=== PATIENT | female | born 1955 | race Caucasian/White ===

== ENCOUNTER 2017-02-06 11:53 | Inpatient (IN) | payer MEDICARE, OTHER ==
[~2017-02-06] VITALS: Ht 172.7 cm; Wt 98.7 kg
[2017-02-07] MEDS ORDERED: ATOR40TA16 PO (10:01)
[2017-02-07] MEDS ORDERED: EXCETAB PO (10:01)
[2017-02-07] MEDS ORDERED: OMEP20TA PO (10:01)
[2017-02-07] MEDS ORDERED: ASPI325T PO (10:01)
[2017-02-07] MEDS ORDERED: LISI20TA PO (10:01)
[2017-02-07] MEDS ORDERED: RIZA10TA2 PO (10:01)
[2017-02-14] VITALS (10 sets, daily range): BP systolic 94–120; BP diastolic 61–72; PULSE 65–77; RESP 18–20; TEMP 97.7–98.6; O2SAT 95–97
[2017-02-14] MEDS ORDERED: LACTATED RINGER'S 1000 ML IV PRN (07:00)
[2017-02-14] MEDS ORDERED: INSULIN HUMAN REGULAR 1,000 UNITS/10 ML VIAL SQ PRN (07:00)
[2017-02-14] MEDS ORDERED: SODIUM CHLORID 0.9% 500 ML IV PRN (07:00)
[2017-02-14] MEDS ORDERED: DEXT 5%-NACL 0.9% 1000 ML INJ 1,000 ML IV SCH (07:00)
[2017-02-14] MEDS ORDERED: METOPROLOL TARTRATE 25 MG TAB PO PRN (07:00)
[2017-02-14] MEDS ORDERED: METRONIDAZOLE 500 MG/100 ML ISONTONIC SOLN IV SCH (07:00)
[2017-02-14] MEDS ORDERED: CHLORHEXIDINE GLUCONATE 2 % 1 PACK (2 CLOTHS) TOPICAL PRN (07:00)
[2017-02-14] MEDS ORDERED: POVIDONE IODINE 5% (ANTISEPSIS KIT) 4 APPLICATIONS EACH NARE PRN (07:00)
[2017-02-14] MEDS ORDERED: ceFAZolin 2 GM PREMIX 50 ML IV SCH (07:00)
[2017-02-14] MEDS ORDERED: [UNRECOGNIZED DRUG - OTHER] OTHER (07:08)
[2017-02-14] MEDS ORDERED: ACETAMINOPHEN 1000 MG/100 ML VIAL IV ONE (07:37)
--- NOTE | 2017-02-14 08:07 | PD.HP.UP ---
H&P Update Note The Pre-Admit History and Physical Examination regarding the above named patient was reviewed (including, but not limited to, vital signs, heart, lungs, co-morbid conditions), and upon re-examination it is noted that: the patient's condition has not significantly changed since the last examination. Elena Arechiga MD February 14, 2017 08:07
[2017-02-14] MEDS ORDERED: METHYLENE BLUE 10 MG/ML VIAL IV ONE (12:00)
[2017-02-14] MEDS ORDERED: PROPOFOL 200 MG/20 ML AMP IV ONE (12:00)
[2017-02-14] MEDS ORDERED: ePHEDrine/NS 25 MG/5 ML SYR IV ONE (12:00)
[2017-02-14] MEDS ORDERED: LACTATED RINGER'S 1000 ML INJ 1,000 ML IV ONE (12:00)
[2017-02-14] MEDS ORDERED: NEOSTIGMINE 3 MG/3 ML SYR IV ONE (12:00)
[2017-02-14] MEDS ORDERED: PHENYLEPH/NS 1000 MCG/10 ML SYR IV ONE (12:00)
[2017-02-14] MEDS ORDERED: ONDANSETRON HCL 4 MG/2 ML VIAL IV PUSH ONE (12:00)
[2017-02-14] MEDS ORDERED: NORMOSOL R INJ 3,000 ML IV ONE (12:00)
[2017-02-14] MEDS ORDERED: ceFAZolin INJ 1,000 MG VIAL IV ONE (13:15)
[2017-02-14] MEDS ORDERED: Post-op Orders (for Pharmacy) MISC XX ONE (14:52)
[2017-02-14] MEDS ORDERED: DO NOT ADM ANY ANTICOAGULANT DRUGS PRN (15:11)
[2017-02-14] MEDS ORDERED: fentaNYL CITRATE 250 MCG/5 ML AMP ONE (15:18)
[2017-02-14] MEDS ORDERED: MORPHINE SULFATE 4 MG/ML INJ ONE (15:19)
[2017-02-14] MEDS ORDERED: POTASSIUM CHLOR 20 MEQ PREMIX 100 ML IV PRN (15:45)
[2017-02-14] MEDS ORDERED: ENALAPRILAT 1.25 MG/ML VIAL IV PRN (15:45)
[2017-02-14] MEDS ORDERED: POTASSIUM CHLOR 40 MEQ PREMIX 100 ML IV PRN (15:45)
[2017-02-14] MEDS ORDERED: ACETAMINOPHEN/HYDROcodone 325 MG/5 MG TAB PO PRN ×2 (15:45)
[2017-02-14] MEDS ORDERED: ACETAMINOPHEN 325 MG TAB PO PRN (15:45)
[2017-02-14] MEDS ORDERED: BENZOCAINE 6 MG/MENTHOL 10 MG LOZENGE BUCCAL PRN (15:45)
[2017-02-14] MEDS ORDERED: ENALAPRILAT 2.5 MG/2 ML VIAL IV PRN (15:45)
[2017-02-14] MEDS ORDERED: diphenhydrAMINE HCL 50 MG/ML VIAL IV PRN (15:45)
[2017-02-14] MEDS ORDERED: MORPHINE SULFATE 30 MG/30 ML PCA IV SCH (15:45)
[2017-02-14] MEDS ORDERED: SODIUM CHLORIDE 0.9% FLUSH 10 ML FLUSH IV FLUSH PRN (15:45)
[2017-02-14] MEDS ORDERED: NALOXONE HCL 0.4 MG/ML AMP IV PRN (15:45)
[2017-02-14] MEDS ORDERED: LEVOFLOXACIN 500 MG PREMIX INJ 100 ML IV SCH (16:00)
[2017-02-14] MEDS: KETOROLAC TROMETHAMINE 30 MG/ML (IVP) VIAL IVP PRN (16:00)
[2017-02-14 16:16] LABS: AUTOMATED NEUTROPHIL # 15.2 TH/MM3 (1.8-7.7); BASOPHIL % 0.1 % (0.0-2.0); HEMATOCRIT 36.6 % (35.0-46.0); HEMO FLAGS DIFF FINAL; LYMPH % 4.5 % (9.0-44.0); LYMPHOCYTE # 0.8 TH/MM3 (1.0-4.8); MEAN CELL VOLUME 88.3 FL (80.0-100.0); MEAN CORPUSCULAR HEMOGLOBIN 28.2 PG (27.0-34.0); MEAN CORPUSCULAR HGB CONC 31.9 % (32.0-36.0); NEUT % 88.4 % (16.0-70.0); PLATELET COUNT 219 TH/MM3 (150-450); RED BLOOD COUNT 4.14 MIL/MM3 (4.00-5.30); RED CELL DISTRIBUTION WIDTH 15.3 % (11.6-17.2); WHITE BLOOD COUNT 17.1 TH/MM3 (4.0-11.0)
[2017-02-14] MEDS ORDERED: *ONDANSETRON 4 MG VIAL PERIprocedural Use ONLY ONE (16:35)
[2017-02-14 16:42] LABS: BICARBONATE 23.7 MEQ/L (21.0-32.0)
[2017-02-14] MEDS: D5-NS + KCL 20 MEQ INJ 1,000 ML IV SCH (16:57)
[2017-02-14 17:08] LABS: CALCIUM-PROTEIN CORRECTED 7.9 MG/DL (8.5-10.1)
[2017-02-14] MEDS: metroNIDAZOLE 500 MG INJ 100 ML IV SCH (18:22)
[2017-02-14] MEDS: PCA - TOTAL MG MORPHINE DELIVERED PER SHIFT SCH ×2 (18:45→22:00)
[2017-02-14] MEDS: ONDANSETRON HCL 4 MG/2 ML VIAL IV PRN (20:04)
[2017-02-14] MEDS ORDERED: NON-FORMULARY DRUG (Lisinopril-Hctz 1 TAB) PO SCH (21:00)
[2017-02-14] MEDS: LISINOPRIL 10 MG TAB PO SCH (23:18)
[2017-02-14] MEDS: HYDROCHLOROTHIAZIDE 12.5 MG CAP PO SCH (23:19)
[2017-02-14] MEDS: SODIUM CHLORIDE 0.9% FLUSH 10 ML FLUSH IV FLUSH SCH (23:19)
[2017-02-15] VITALS (30 sets, daily range): BP systolic 90–133; BP diastolic 57–85; PULSE 69–78; RESP 16–20; TEMP 96.8–98.8; O2SAT 89–97
[2017-02-15] MEDS: metroNIDAZOLE 500 MG INJ 100 ML IV SCH ×3 (01:33→17:17)
[2017-02-15] MEDS: D5-NS + KCL 20 MEQ INJ 1,000 ML IV SCH ×4 (01:34→20:04)
[2017-02-15 05:10] LABS: AUTOMATED NEUTROPHIL # 7.6 TH/MM3 (1.8-7.7); BASOPHIL % 0.1 % (0.0-2.0); EOSINOPHIL % 0.1 % (0.0-4.0); HEMATOCRIT 34.3 % (35.0-46.0); HEMO FLAGS DIFF FINAL; LYMPH % 13.7 % (9.0-44.0); LYMPHOCYTE # 1.3 TH/MM3 (1.0-4.8); MEAN CELL VOLUME 88.6 FL (80.0-100.0); MEAN CORPUSCULAR HEMOGLOBIN 28.6 PG (27.0-34.0); MEAN CORPUSCULAR HGB CONC 32.3 % (32.0-36.0); MONO % 9.5 % (0.0-8.0); NEUT % 76.6 % (16.0-70.0); PLATELET COUNT 188 TH/MM3 (150-450); RED BLOOD COUNT 3.88 MIL/MM3 (4.00-5.30); RED CELL DISTRIBUTION WIDTH 15.3 % (11.6-17.2); WHITE BLOOD COUNT 9.9 TH/MM3 (4.0-11.0)
[2017-02-15 05:21] LABS: BICARBONATE 27.1 MEQ/L (21.0-32.0); POTASSIUM 3.9 MEQ/L (3.5-5.1)
[2017-02-15 05:33] LABS: CALCIUM-PROTEIN CORRECTED 7.9 MG/DL (8.5-10.1)
[2017-02-15] MEDS: PCA - TOTAL MG MORPHINE DELIVERED PER SHIFT SCH ×3 (06:00→22:00)
--- NOTE | 2017-02-15 07:43 | HHI.PR ---
Subjective Remarks POD#1 s/p LAR with diverting ileostomy, diverticulitis with colovaginal fistula Comfortable, no nausea Objective Vital Signs Date Time Temp Pulse Resp B/P Pulse Ox O2 Delivery O2 Flow Rate FiO2 02/15/17 06:19 91/57 02/15/17 06:00 76 02/15/17 06:00 14 02/15/17 05:12 97.8 76 18 90/58 90 02/15/17 05:00 74 02/15/17 04:00 78 02/15/17 03:00 77 02/15/17 02:00 76 02/15/17 01:00 74 02/15/17 00:59 96.8 76 18 106/66 94 02/15/17 00:00 76 02/14/17 23:00 77 02/14/17 22:00 76 02/14/17 22:00 16 02/14/17 21:00 76 02/14/17 20:16 98.0 70 18 108/72 96 02/14/17 20:00 70 02/14/17 19:35 98.6 71 18 120/70 95 02/14/17 19:00 73 02/14/17 18:45 15 02/14/17 18:00 69 02/14/17 17:33 98.5 74 20 106/62 96 02/14/17 16:58 12 02/14/17 16:30 98.2 74 14 113/62 95 Nasal Cannula 3 02/14/17 16:15 74 14 111/61 95 Nasal Cannula 3 02/14/17 16:00 77 14 107/59 95 Nasal Cannula 3 02/14/17 15:45 73 14 109/69 95 Nasal Cannula 3 02/14/17 15:30 75 14 98/53 94 Nasal Cannula 3 02/14/17 15:15 71 14 96/55 94 Nasal Cannula 4 02/14/17 15:00 98.5 64 14 103/61 94 Nasal Cannula 4 I/O 02/14/17 02/14/17 02/14/17 02/15/17 02/15/17 02/15/17 07:00 15:00 23:00 07:00 15:00 23:00 Intake Total 3000 ml Output Total 500 ml Balance 2500 ml Intake Other 3000 ml Output Urine Total 300 ml Estimated Blood Loss 200 ml Result Diagram: 02/15/17 0327 02/15/17 0327 Objective Remarks Abdomen soft, nondistended, tender Dressings c/d/i Assessment and Plan Assessment and Plan Fluid bolus d/c stent mobilize Advance diet Elena Arechiga MD February 15, 2017 07:43
[2017-02-15] MEDS ORDERED: SODIUM CHLORID 0.9% 500 ML INJ 500 ML IV ONE (07:45)
[2017-02-15] MEDS: PANTOPRAZOLE SODIUM 40 MG VIAL IVP SCH (08:50)
[2017-02-15] MEDS: SODIUM CHLORIDE 0.9% FLUSH 10 ML FLUSH IV FLUSH SCH ×2 (08:50→22:06)
[2017-02-15] MEDS: ONDANSETRON HCL 4 MG/2 ML VIAL IV PRN ×2 (09:35→17:17)
[2017-02-15] MEDS: HEPARIN SODIUM - SQ 10,000 UNITS/ML VIAL SQ SCH (13:08)
[2017-02-15] MEDS: LEVOFLOXACIN 750 MG PREMIX INJ 150 ML IV SCH (16:17)
--- NOTE | 2017-02-15 17:02 | MP ---
cc: CHIQUITA BUCIO DATE OF SURGERY 02/14/17 PREOPERATIVE DIAGNOSIS Diverticulitis POSTOPERATIVE DIAGNOSIS Diverticulitis PROCEDURE Cystoscopy with bilateral ureteral catheter insertion SURGEON Carina Bucio MD ANESTHESIA General endotracheal tube FLUIDS 100 mL of crystalloid. ESTIMATED BLOOD LOSS No blood loss. COMPLICATIONS No complications. FINDINGS Normal bladder. PROCEDURE IN DETAIL Ruby Talavera is a 61-year-old female who presented with history of diverticulitis and has a colovaginal fistula. She was scheduled to undergo robotic repair by Dr. Arechiga and requests were made for bilateral ureteral catheter insertion. The patient was brought to the operating room and identified by myself as Ruby Talavera. She was placed in a dorsal lithotomy position, prepped and draped in usual sterile fashion, received preprocedure antibiotics and general endotracheal tube anesthesia was administered. A 22-Belgian cystoscope was inserted in the bladder and crump cystoscopy did not reveal any abnormalities. The left ureteral orifice was identified and a 5-Belgian open-ended catheter was inserted up the left ureter with minimal difficulty as a wire was required to be placed. The right ureter orifice was identified and a 5-Belgian open-ended catheter slid up on the right side without difficulty. The Akhtar was inserted and the catheters were attached to the Akhtar and she tolerated the procedure well. Chiquita AGRAWAL/ /9:28 AM /4:47 PM
--- NOTE | 2017-02-15 21:12 | MP ---
cc: ANA ARECHIGA MD DATE OF SURGERY 02/14/17 PREOPERATIVE DIAGNOSIS 1. Diverticulitis 2. Colovaginal fistula. POSTOPERATIVE DIAGNOSIS 1. Diverticulitis 2. Colovaginal fistula. PROCEDURE 1. Robotic low anterior resection 2. Diverting loop ileostomy SURGEON Tayler Arechiga RISK PROFESSIONAL Kevyn ANESTHESIA General per ET tube ESTIMATED BLOOD LOSS 150 mL OPERATIVE INDICATIONS The patient is a 61-year-old female with evidence of colovaginal fistula secondary to diverticulitis. OPERATIVE FINDINGS Inflamed phlegmonous sigmoid folded down and into the pelvis, adherent to the left pelvic sidewall. The left adnexa and the posterior uterus are involved with the inflammatory changes, which extend down the rectovaginal septum down to the level of the mid rectum. The liver was visibly normal as was the remainder of the bowel. PROCEDURE IN DETAIL The patient was brought to the operating room and placed in the supine position. After induction of general anesthesia, the patient was placed in Josafat stirrups and all bony prominences were padded. Dr. Bucio then came in and performed cystoscopy with placement of bilateral ureteral catheters. Please see his operative note for details. A site was then chosen for the camera, being located 2 cm to the right and above the umbilicus. A 10-12 trocar was placed at this location under direct vision using a laparoscope. CO2 insufflation was then undertaken and a brief abdominal survey was performed, with notation of nothing that would preclude the robotic approach. The ports were then placed as follows: The #1, 10-12 port, was placed just inside the right anterior superior iliac spine. The #5 assist port was placed just under the right costal margin, equal distance to the #1 and the camera port. The patient was then hydroplaned with the head down and slightly to the right, and the small bowel was brought up and out of the pelvis. The bowel was then assessed and I felt that it was a fairly good possibility we would need to take down the splenic flexure, and so I elected to proceed with the following placement for the remainder of my ports: A #3 port was placed in line with the umbilicus, in the left anterior axillary line, and the #2 port was placed on the midclavicular line, three fingerbreadths above the umbilical line. The small bowel was again retracted up and to the right and the robot was then docked. The mesentery on the right was scored and opened and a window was made posterior to the vessels. Dissection continued in this plane as far as I could go laterally and inferiorly until I had trouble getting retraction. The lateral peritoneal attachments of the proximal sigmoid and distal descending colon were dissected free. Dissection continued in this plane until the left ureter was clearly identified and swept away from the specimen. The previous dissection was then joined. A window was then made around the vessels, and a white load of the [place] endostapler was placed across the vessels, closed, held for 30 seconds, fired, and removed. Dissection then continued in the posterior and inferior plane and up and around the left, posterior to the descending colon mesentery. Dissection continued in this plane up to the level of, but not around the splenic flexure. Attention was then turned to the pelvis where the lateral peritoneal attachments were dissected free. The left adnexa was noted to be adherent to the colon and this was gently and carefully dissected free from the underlying colon. Dissection continued in this plane posteriorly. On the right side the dissection was fairly clear. On the left side and anteriorly things were quite adherent. There were so many adhesions it was a very slow and tedious process, but eventually we were able to dissect down to the level of the the apparent fistula. However, she continued to have adherence of the rectum to the posterior wall of the vagina to the point where we had just very slow and tedious dissection, dissecting this off. Eventually about midway down the rectum, I was able to get to softer rectum, but the anterior surface where the vagina was still quite firm and adherent. With this, I felt somewhat worried that there remained a fistula distally in addition to proximally. To clarify, I placed a sponge in the vagina and then filled the rectum with saline marked with methylene blue until tension was noted on the rectum. The sponge was then were retrieved from the vagina with no sign of any leakage noted. A site was then chosen for division of the rectum, where the bowel was soft and pliable. The mesentery at this level was cleared circumferentially using the harmonic scalpel. The DaVinci stapler was placed across the bowel at this level. A second and third load of the DaVinci stapler was needed to complete the resection of the bowel. At this point, the patient had been noted to have quite a bit of oozing in the pelvis during all of our dissection due to the inflammatory tissue. Further dissection was taken up to but not around the splenic flexure, freeing the posterior attachments until the bowel came down nicely to the rectal stump without any tension. However, at this point I elected to perform proximal diversion due to the low aspect of the anastomosis, as well as the inflammatory changes. The small bowel was then examined and a site was chosen for the ileostomy 10-12 cm proximally to the ileocecal valve . Two clips were placed distally, one was placed proximally, to allow us to orient the ileostomy. The 33 EEA stapler was chosen and then placed into the anus and advanced to the rectal stump. Some fibrofatty tissue surrounding this was cleared using electrocautery. The robot was then undocked. A site was chosen for the ileostomy, 1/[address] from the umbilicus to the right anterior superior iliac spine. A 8 cm incision was made transversely. Using electrocautery, dissection was carried down to the fascia of the anterior abdominal wall. Some of the preperitoneal fat was removed using electrocautery. A vertical midline incision was made along the anterior fascia, and the fibers of the rectus abdominis muscle were split. The posterior fascia was then incised the length of the anterior fascial incision. It was necessary to make this a little bit bigger to get out the specimen which was quite large. A wound protector was then placed and we were eventually able to grasp the proximal stapled end of the bowel and bring it up and out through the incision, along with the inflamed bowel. It should be noted that prior to taking this out, we had noticed a small tear in the bowel which was closed with the stapler, but there was probably some slight leakage of stool during the procedure. A site was then chosen for proximal division of the bowel, where the bowel was soft and pliable. The mesentery at this level was serially divided and ligated using 0 Vicryl ties, and a pursestring stapling device was placed across the bowel at this level. The distal bowel was secured with a Thai clamp. The bowel was amputated and taken to a back table where it was later opened and diverticulitis was then confirmed. The anvil from the 33 EEA stapler was placed into the cut end of the bowel and the previously placed pursestring suture was then secured. This was then prolapsed back into the peritoneal cavity and the fascia at the ileostomy site was then closed in a running fashion using #1 PDS. The wound was occluded with an OpSite and CO2 insufflation was resumed. The laparoscope was brought up onto the field and placed into the peritoneal cavity. The stapler was advanced through the anus and up to the rectal stump without difficulty. The spike was then advanced posterior to the staple line. The anvil was into the spike, being sure that the bowel was not twisted. This was closed, held for 30 seconds, fired, and removed thus creating an enteroenterotomy. The anastomosis appeared pink and healthy circumferentially and both anastomotic rings appeared to be complete. Warm normal saline was placed into the pelvis and the proximal bowel was occluded with gentle pressure. Air was insufflated into the rectum until tension was noted on the anastomosis, with no sign of any leakage noted. The air was desufflated to the extent possible and the saline was suctioned out of the pelvis. Some Lenny was then placed posteriorly in the pelvic beds, to help with some of the oozing secondary to the large amount of inflammation. The previously marked distal ileum for ileostomy was then grasped. The 10-12 trocar sites at the right lower quadrant and just to the right of the umbilicus were then closed, using the crossbow device and 0 Vicryl suture. The sutures were placed but not tied. The ileostomy incision was again opened widely, and the previously placed fascial sutures were then secured. The fascia at the ileostomy site was then sutured at either end in an interrupted fashion to tighten up the ileostomy site, using #1 PDS sutures and the previously marked piece of bowel was brought up and out, orienting it so that the distal bowel was in a dependent position. A window was made in the mesentery and a TX 30 stapler was placed across the distal bowel, fired, and removed. The skin was then also brought in slightly on either end using 3-0 Vicryl and the stoma was matured in a [place] fashion using 3-0 Vicryl. The trocar sites were closed in an interrupted subcuticular fashion using 3-0 Vicryl. Steri-Strips and a stomal appliance were then applied. The right ureteral catheter was removed. All sponge, needle and instrument counts were correct and the patient was returned to the post anesthesia care in stable condition. MD BOBY Aguirre/ /2:55 PM /8:34 PM EMELIA
[2017-02-15] MEDS: HYDROCHLOROTHIAZIDE 12.5 MG CAP PO SCH (22:06)
[2017-02-15] MEDS: LISINOPRIL 10 MG TAB PO SCH (22:06)
[2017-02-16] VITALS (17 sets, daily range): BP systolic 130–165; BP diastolic 77–85; PULSE 67–85; RESP 16–20; TEMP 98–99; O2SAT 91–98
[2017-02-16] MEDS: ONDANSETRON HCL 4 MG/2 ML VIAL IV PRN ×4 (00:01→18:44)
[2017-02-16] MEDS: metroNIDAZOLE 500 MG INJ 100 ML IV SCH ×3 (00:02→17:11)
[2017-02-16] MEDS: HEPARIN SODIUM - SQ 10,000 UNITS/ML VIAL SQ SCH ×2 (01:20→15:35)
[2017-02-16] MEDS: KETOROLAC TROMETHAMINE 30 MG/ML (IVP) VIAL IVP PRN ×3 (01:20→21:13)
[2017-02-16] MEDS: D5-NS + KCL 20 MEQ INJ 1,000 ML IV SCH ×2 (04:00→10:20)
[2017-02-16] MEDS: PCA - TOTAL MG MORPHINE DELIVERED PER SHIFT SCH ×3 (05:58→22:00)
--- NOTE | 2017-02-16 10:12 | HHI.PR ---
Subjective Remarks POD#2 s/p LAR with diverting ileostomy, diverticulitis with colovaginal fistula Nausea yesterday - ?morphine Objective Vital Signs Date Time Temp Pulse Resp B/P Pulse Ox O2 Delivery O2 Flow Rate FiO2 02/16/17 07:00 70 02/16/17 06:13 16 02/16/17 06:00 67 02/16/17 05:58 18 02/16/17 05:00 73 02/16/17 04:00 68 02/16/17 03:50 98.5 68 16 130/77 95 02/16/17 03:50 95 Nasal Cannula 2.00 02/16/17 03:00 70 02/16/17 02:00 73 02/16/17 01:00 73 02/16/17 00:00 85 02/15/17 23:20 98.8 69 16 133/85 92 02/15/17 23:20 92 Nasal Cannula 2.00 02/15/17 23:00 70 02/15/17 22:00 70 02/15/17 22:00 16 02/15/17 21:00 76 02/15/17 20:00 74 02/15/17 19:46 97 Nasal Cannula 2.00 02/15/17 19:30 98.8 72 18 117/67 89 02/15/17 19:30 90 Nasal Cannula 2.00 02/15/17 19:00 77 02/15/17 18:00 70 02/15/17 17:00 74 02/15/17 16:00 72 02/15/17 16:00 98.4 70 20 109/65 94 02/15/17 16:00 94 Nasal Cannula 2.00 02/15/17 15:00 74 02/15/17 14:00 72 02/15/17 13:10 18 02/15/17 13:00 74 02/15/17 12:00 74 02/15/17 11:00 94 Nasal Cannula 2.00 02/15/17 11:00 98.7 74 20 112/71 94 02/15/17 11:00 71 I/O 02/15/17 02/15/17 02/15/17 02/16/17 02/16/17 02/16/17 07:00 15:00 23:00 07:00 15:00 23:00 Intake Total 1650 ml 1789 ml Output Total 425 ml 950 ml Balance 1225 ml 839 ml Intake Oral 0 ml 120 ml IV Total 1650 ml 1669 ml Output Urine Total 425 ml 875 ml Stool Total 75 ml Result Diagram: 02/15/17 0327 02/15/17326 Objective Remarks Abdomen soft, nondistended, tender Wounds clean stoma pink Assessment and Plan Assessment and Plan MOBILIZE transfer to 7N Advance diet decrease IVF Elena Arechiga MD February 16, 2017 10:12
[2017-02-16] MEDS: PANTOPRAZOLE SODIUM 40 MG VIAL IVP SCH (10:19)
[2017-02-16] MEDS: SODIUM CHLORIDE 0.9% FLUSH 10 ML FLUSH IV FLUSH SCH ×2 (10:19→21:09)
[2017-02-16 10:34] LABS: AUTOMATED NEUTROPHIL # 6.9 TH/MM3 (1.8-7.7); BASOPHIL % 0.5 % (0.0-2.0); EOSINOPHIL % 0.2 % (0.0-4.0); HEMATOCRIT 36.8 % (35.0-46.0); HEMO FLAGS DIFF FINAL; LYMPH % 10.9 % (9.0-44.0); LYMPHOCYTE # 0.9 TH/MM3 (1.0-4.8); MEAN CELL VOLUME 88.5 FL (80.0-100.0); MEAN CORPUSCULAR HEMOGLOBIN 28.4 PG (27.0-34.0); MONO % 8.6 % (0.0-8.0); NEUT % 79.8 % (16.0-70.0); PLATELET COUNT 163 TH/MM3 (150-450); RED BLOOD COUNT 4.15 MIL/MM3 (4.00-5.30); RED CELL DISTRIBUTION WIDTH 15.6 % (11.6-17.2); WHITE BLOOD COUNT 8.6 TH/MM3 (4.0-11.0)
[2017-02-16 11:01] LABS: BICARBONATE 27.9 MEQ/L (21.0-32.0); POTASSIUM 3.8 MEQ/L (3.5-5.1)
[2017-02-16] MEDS: LEVOFLOXACIN 750 MG PREMIX INJ 150 ML IV SCH (15:35)
[2017-02-16] MEDS: LISINOPRIL 10 MG TAB PO SCH (21:08)
[2017-02-16] MEDS: HYDROCHLOROTHIAZIDE 12.5 MG CAP PO SCH (21:09)
[2017-02-17] VITALS (16 sets, daily range): BP systolic 139–162; BP diastolic 74–86; PULSE 63–73; RESP 14–20; TEMP 98–98.9; O2SAT 90–94
[2017-02-17] MEDS: metroNIDAZOLE 500 MG INJ 100 ML IV SCH ×3 (00:17→17:00)
[2017-02-17] MEDS: HEPARIN SODIUM - SQ 10,000 UNITS/ML VIAL SQ SCH ×2 (00:19→14:00)
[2017-02-17] MEDS: D5-NS + KCL 20 MEQ INJ 1,000 ML IV SCH (00:20)
[2017-02-17] MEDS: PCA - TOTAL MG MORPHINE DELIVERED PER SHIFT SCH ×2 (06:00→14:00)
[2017-02-17 07:53] LABS: AUTOMATED NEUTROPHIL # 5.3 TH/MM3 (1.8-7.7); BASOPHIL # 0.1 TH/MM3 (0-0.2); EOSINOPHIL # 0.1 TH/MM3 (0-0.4); EOSINOPHIL % 1.5 % (0.0-4.0); HEMO FLAGS DIFF FINAL; LYMPH % 17.1 % (9.0-44.0); LYMPHOCYTE # 1.3 TH/MM3 (1.0-4.8); MEAN CELL VOLUME 87.9 FL (80.0-100.0); MEAN CORPUSCULAR HEMOGLOBIN 28.6 PG (27.0-34.0); MEAN CORPUSCULAR HGB CONC 32.5 % (32.0-36.0); MONO % 8.5 % (0.0-8.0); NEUT % 71.9 % (16.0-70.0); PLATELET COUNT 159 TH/MM3 (150-450); RED BLOOD COUNT 3.52 MIL/MM3 (4.00-5.30); RED CELL DISTRIBUTION WIDTH 14.9 % (11.6-17.2); WHITE BLOOD COUNT 7.4 TH/MM3 (4.0-11.0)
[2017-02-17] MEDS: SODIUM CHLORIDE 0.9% FLUSH 10 ML FLUSH IV FLUSH SCH ×2 (08:06→20:32)
[2017-02-17] MEDS: PANTOPRAZOLE SODIUM 40 MG VIAL IVP SCH (08:06)
[2017-02-17 08:19] LABS: BICARBONATE 27.2 MEQ/L (21.0-32.0); POTASSIUM 3.8 MEQ/L (3.5-5.1)
[2017-02-17] MEDS: LEVOFLOXACIN 750 MG PREMIX INJ 150 ML IV SCH (16:00)
--- NOTE | 2017-02-17 18:46 | HHI.PR ---
Subjective Remarks POD#3 s/p LAR with diverting ileostomy, diverticulitis with colovaginal fistula comfortable Objective Vital Signs Date Time Temp Pulse Resp B/P Pulse Ox O2 Delivery O2 Flow Rate FiO2 02/17/17 16:00 98.1 67 20 161/86 92 02/17/17 12:00 98.2 67 20 162/75 94 02/17/17 09:58 94 21 02/17/17 08:00 93 Room Air 02/17/17 08:00 98.0 63 20 147/75 92 02/17/17 07:00 14 02/17/17 06:00 16 02/17/17 04:00 98.1 68 20 142/76 90 02/17/17 00:00 98.9 73 19 151/83 91 02/16/17 22:00 16 02/16/17 21:00 Room Air 02/16/17 20:00 98.5 72 20 165/80 92 I/O 02/16/17 02/16/17 02/16/17 02/17/17 02/17/17 02/17/17 07:00 15:00 23:00 07:00 15:00 23:00 Intake Total 1789 ml 1306 ml 480 ml Output Total 950 ml 1300 ml 1000 ml 500 ml Balance 839 ml 6 ml -1000 ml -20 ml Intake Oral 120 ml 480 ml 480 ml IV Total 1669 ml 826 ml Output Urine Total 875 ml 1100 ml 1000 ml 500 ml Stool Total 75 ml 200 ml Result Diagram: 02/17/17 0630 02/17/17 0630 Objective Remarks Abdomen soft, nondistended, tender Wounds clean stoma pink Assessment and Plan Assessment and Plan Possible d/c in am Elena Arechiga MD February 17, 2017 18:46
[2017-02-17] MEDS: LISINOPRIL 10 MG TAB PO SCH (20:31)
[2017-02-17] MEDS: HYDROCHLOROTHIAZIDE 12.5 MG CAP PO SCH (20:31)
[2017-02-18] VITALS: BP 147/81; PULSE 66; RESP 18; TEMP 98.3; O2SAT 94
[2017-02-18] MEDS: HEPARIN SODIUM - SQ 10,000 UNITS/ML VIAL SQ SCH (00:59)
[2017-02-18] MEDS: metroNIDAZOLE 500 MG INJ 100 ML IV SCH ×2 (01:00→07:48)
[2017-02-18 04:00] VITALS: BP 143/77; PULSE 69; RESP 16; TEMP 99; O2SAT 92
[2017-02-18] MEDS: SODIUM CHLORIDE 0.9% FLUSH 10 ML FLUSH IV FLUSH SCH (07:48)
[2017-02-18] MEDS: PANTOPRAZOLE SODIUM 40 MG VIAL IVP SCH (07:48)
[2017-02-18 08:00] VITALS: BP 145/63; PULSE 62; RESP 18; TEMP 98.3; O2SAT 93
--- NOTE | 2017-02-18 09:47 | HHI.PR ---
Subjective Remarks POD#4 s/p LAR with diverting ileostomy, diverticulitis with colovaginal fistula comfortable Objective Vital Signs Date Time Temp Pulse Resp B/P Pulse Ox O2 Delivery O2 Flow Rate FiO2 02/18/17 08:00 98.3 62 18 145/63 93 02/18/17 04:00 99.0 69 16 143/77 92 02/18/17 00:00 98.3 66 18 147/81 94 02/17/17 20:00 98.7 72 18 139/74 92 02/17/17 20:00 Room Air 02/17/17 18:00 14 02/17/17 17:00 16 02/17/17 16:00 14 02/17/17 16:00 98.1 67 20 161/86 92 02/17/17 15:00 16 02/17/17 14:00 18 02/17/17 13:00 18 02/17/17 12:00 98.2 67 20 162/75 94 02/17/17 12:00 14 02/17/17 11:00 16 02/17/17 10:00 16 02/17/17 09:58 94 21 I/O 02/17/17 02/17/17 02/17/17 02/18/17 02/18/17 02/18/17 07:00 15:00 23:00 07:00 15:00 23:00 Intake Total 480 ml 1994 ml 220 ml Output Total 1000 ml 500 ml 2080 ml 375 ml Balance -1000 ml -20 ml -86 ml -155 ml Intake Oral 480 ml 240 ml 120 ml IV Total 1754 ml 100 ml Output Urine Total 1000 ml 500 ml 1750 ml 250 ml Stool Total 125 ml Drainage Total 330 ml # Bowel Movements 0 Result Diagram: 02/17/17 0630 02/17/17 0630 Objective Remarks Abdomen soft, nondistended, tender Wounds clean stoma pink Assessment and Plan Assessment and Plan Home today with [facility] Followup with me 3 weeks Elena Arechiga MD February 18, 2017 09:47
[2017-02-18] MEDS ORDERED: HYDR-3516 PO (09:51)
[2017-02-18 10:55] VITALS: O2SAT 93
--- NOTE | 2017-02-19 08:03 | MD ---
cc: ELENA ARECHIGA M.D. ADMISSION DATE: 02/14/2017 DISCHARGE DATE: 02/18/2017 ADMISSION DIAGNOSIS Diverticulitis. DISCHARGE DIAGNOSIS Diverticulitis. PROCEDURE 1. Cystoscopy with placement of bilateral ureteral catheters. 2. Robotic low anterior resection with diverting loop ileostomy. HOSPITAL COURSE The patient is a 61-year-old female with a history of diverticulitis with colovaginal fistula. She was admitted to the hospital on 02/14/2017 after an outpatient bowel prep. She was taken to the operating where she underwent the above-named procedure. Postoperatively she did well with rapid return of bowel and bladder function. She was discharged to home on 02/18/2017 with instructions to follow-up with myself in the office. Elena Arechiga MD KW/BT /9:53 AM /8:01 AM EMELIA
== END 2017-02-18 12:37 | disposition home health service (06) | DRG 330 ==
LOC: HSDI 02-14 06:24 → HCIS 02-14 16:43 → N04A 02-16 16:05
PROVIDERS: ADMIT Colon & Rectal Surgery; ATTEND Colon & Rectal Surgery
PROC: 8E0W4CZ Robotic Assisted Procedure of Trunk Region, Percutaneous Endoscopic Approach (ICD-10-PCS; 2017-02-14)
PROC: 0T788DZ Dilation of Bilateral Ureters with Intraluminal Device, Via Natural or Artificial Opening Endoscopic (ICD-10-PCS; 2017-02-14)
PROC: 0DTN4ZZ Resection of Sigmoid Colon, Percutaneous Endoscopic Approach (ICD-10-PCS; principal; 2017-02-14 08:20)
PROC: 0D1B4Z4 Bypass Ileum to Cutaneous, Percutaneous Endoscopic Approach (ICD-10-PCS; 2017-02-14 08:20)
DX: K57.32 Diverticulitis of large intestine without perforation or abscess without bleeding (principal); N82.3 Fistula of vagina to large intestine; I10 Essential (primary) hypertension; K21.9 Gastro-esophageal reflux disease without esophagitis; Z86.73 Personal history of transient ischemic attack (TIA), and cerebral infarction without residual deficits; Z87.891 Personal history of nicotine dependence; Z95.2 Presence of prosthetic heart valve; Z86.19 Personal history of other infectious and parasitic diseases
CPT/HCPCS: 80048; 84155; 85025; 86850; 86900; 86901; 88307; 94150; C9113; J0131; J0690; J1644; J1885; J1956; J2270; J2370; J2405; J2710; J3010; J3480; J7040; J7120

== ENCOUNTER → 2017-02-07 | Outpatient (CLI) | payer MEDICARE, OTHER ==
[~2017-02-07] MED LIST: ASPI325T PO; ATOR40TA16 PO; EXCETAB PO; Excedrin PO; HYDR-3516 PO; IMIT25TA PO; LISI20TA PO; OMEP20TA OR; OMEP20TA PO; RIZA10TA2 PO; [UNRECOGNIZED DRUG - OTHER] OTHER
[2017-02-07 10:12] LABS: AUTOMATED NEUTROPHIL # 4.2 TH/MM3 (1.8-7.7); BASOPHIL # 0.1 TH/MM3 (0-0.2); BASOPHIL % 2.1 % (0.0-2.0); EOSINOPHIL # 0.5 TH/MM3 (0-0.4); EOSINOPHIL % 7.6 % (0.0-4.0); HEMATOCRIT 41.7 % (35.0-46.0); HEMO FLAGS DIFF FINAL; LYMPH % 21.6 % (9.0-44.0); LYMPHOCYTE # 1.5 TH/MM3 (1.0-4.8); MEAN CELL VOLUME 87.9 FL (80.0-100.0); MEAN CORPUSCULAR HEMOGLOBIN 28.3 PG (27.0-34.0); MEAN CORPUSCULAR HGB CONC 32.2 % (32.0-36.0); MONO % 6.9 % (0.0-8.0); NEUT % 61.8 % (16.0-70.0); PLATELET COUNT 270 TH/MM3 (150-450); RED BLOOD COUNT 4.74 MIL/MM3 (4.00-5.30); RED CELL DISTRIBUTION WIDTH 15.8 % (11.6-17.2); WHITE BLOOD COUNT 6.8 TH/MM3 (4.0-11.0)
[2017-02-07 10:22] LABS: APTT (PATIENT) 26.3 SEC (24.3-30.1); PROTHROMBIN TIME - PATIENT 11.4 SEC (9.8-11.6)
[2017-02-07 10:40] LABS: ALT (GPT) 31 U/L (10-53); ANION GAP 7 MEQ/L (5-15); AST (GOT) 26 U/L (15-37); BLOOD UREA NITROGEN 14 MG/DL (7-18); CHLORIDE 106 MEQ/L (98-107); GLOMERULAR FILTRATION RATE 63 ML/MIN (>89); GLUCOSE,FASTING 101 MG/DL (74-99); POTASSIUM 4.7 MEQ/L (3.5-5.1); SODIUM (NA) 141 MEQ/L (136-145)
[2017-02-07 10:42] LABS: ALKALINE PHOSPHATASE 103 U/L (45-117); TOTAL BILIRUBIN ADULT 0.3 MG/DL (0.2-1.0)
--- NOTE | 2017-02-07 11:08 | RADRPT ---
EXAM DATE/TIME: 02/07/2017 10:37 [place] COMPARISON: No previous studies available for comparison. INDICATIONS : Evaluate for pneumonia, pneumothorax or communicable disease. Pre op for sigmoid resection 02-14-17 MEDICAL HISTORY : None. SURGICAL HISTORY : Mitral valve replacement ENCOUNTER: Initial ACUITY: 1 day PAIN SCORE: 0/10 LOCATION: Bilateral chest FINDINGS: Sternal wires are noted. Heart is enlarged. Mild interstitial edema is present. There is no alveol ar consolidation, pleural effusion or pneumothorax. CONCLUSION: Mild compensated cardiomegaly. Neville Sosa MD FACR on February 07, 2017 at 10:54 Board Certified Radiologist. This report was verified electronically.
[2017-02-07 12:28] LABS: BACTERIA, URINE RARE /hpf; BLOOD, URINE NEG (NEG); COMMENT (UR) CULT NOT INDICATED; CULTURE IF INDICATED CULT NOT INDICATED; GLUCOSE,URINE NEG (NEG); KETONE, URINE NEG (NEG); MUCUS URINE FEW /lpf (OCC); NITRITE,URINE NEG (NEG); SQUAMOUS EPITHELIAL CELL URINE 1 /hpf (0-5); URINE COLOR YELLOW (YELLW/STRAW)
== END ==
LOC: CPRE 09:29
PROVIDERS: ATTEND Colon & Rectal Surgery
DX: Z01.812 Encounter for preprocedural laboratory examination (principal); K57.32 Diverticulitis of large intestine without perforation or abscess without bleeding; Z01.818 Encounter for other preprocedural examination
CPT/HCPCS: 36415; 71020; 80053; 81001; 85025; 85610; 85730

== ENCOUNTER → 2017-06-17 | Outpatient (CLI) | payer MEDICARE, OTHER ==
[~2017-06-17] MED LIST changes: -Excedrin PO; -IMIT25TA PO; +METR500T10 PO; +NEOM500 PO; -OMEP20TA OR; +PROM12.54 PO; -[UNRECOGNIZED DRUG - OTHER] OTHER
[2017-06-17 09:40] LABS: AUTOMATED NEUTROPHIL # 5.3 TH/MM3 (1.8-7.7); BASOPHIL # 0.1 TH/MM3 (0-0.2); BASOPHIL % 1.4 % (0.0-2.0); EOSINOPHIL # 0.7 TH/MM3 (0-0.4); EOSINOPHIL % 8.2 % (0.0-4.0); HEMATOCRIT 40.8 % (35.0-46.0); HEMO FLAGS DIFF FINAL; LYMPH % 19.2 % (9.0-44.0); LYMPHOCYTE # 1.6 TH/MM3 (1.0-4.8); MEAN CELL VOLUME 87.6 FL (80.0-100.0); MEAN CORPUSCULAR HEMOGLOBIN 29.4 PG (27.0-34.0); MEAN CORPUSCULAR HGB CONC 33.6 % (32.0-36.0); MONO % 6.3 % (0.0-8.0); NEUT % 64.9 % (16.0-70.0); PLATELET COUNT 257 TH/MM3 (150-450); RED BLOOD COUNT 4.66 MIL/MM3 (4.00-5.30); RED CELL DISTRIBUTION WIDTH 15.6 % (11.6-17.2); WHITE BLOOD COUNT 8.1 TH/MM3 (4.0-11.0)
[2017-06-17 09:51] LABS: APTT (PATIENT) 25.2 SEC (24.3-30.1); PROTHROMBIN TIME - PATIENT 10.7 SEC (9.8-11.6)
[2017-06-17 09:56] LABS: BACTERIA, URINE RARE /hpf; BLOOD, URINE NEG (NEG); COMMENT (UR) CULT NOT INDICATED; CULTURE IF INDICATED CULT NOT INDICATED; GLUCOSE,URINE NEG (NEG); HYALINE CAST, URINE 6 /lpf (RARE); KETONE, URINE NEG (NEG); MUCUS URINE FEW /lpf (OCC); NITRITE,URINE NEG (NEG); PH, URINE 5.5 (5.0-8.5); SQUAMOUS EPITHELIAL CELL URINE 5 /hpf (0-5); URINE COLOR YELLOW (YELLW/STRAW)
[2017-06-17 10:10] LABS: ANION GAP 7 MEQ/L (5-15); AST (GOT) 19 U/L (15-37); BICARBONATE 24.1 MEQ/L (21.0-32.0); BLOOD UREA NITROGEN 19 MG/DL (7-18); CHLORIDE 106 MEQ/L (98-107); GLOMERULAR FILTRATION RATE 56 ML/MIN (>89); GLUCOSE,FASTING 107 MG/DL (74-99); POTASSIUM 4.8 MEQ/L (3.5-5.1); SODIUM (NA) 137 MEQ/L (136-145)
[2017-06-17 10:15] LABS: ALKALINE PHOSPHATASE 130 U/L (45-117); ALT (GPT) 25 U/L (10-53); TOTAL BILIRUBIN ADULT 0.3 MG/DL (0.2-1.0)
== END ==
LOC: CPRE 08:48
PROVIDERS: ATTEND Colon & Rectal Surgery
DX: Z01.812 Encounter for preprocedural laboratory examination (principal); K57.32 Diverticulitis of large intestine without perforation or abscess without bleeding; N82.4 Other female intestinal-genital tract fistulae
CPT/HCPCS: 36415; 80053; 81001; 85025; 85610; 85730

== ENCOUNTER 2017-06-23 11:04 | Inpatient (IN) | payer MEDICARE, OTHER ==
[~2017-06-23] VITALS: Ht 172.7 cm; Wt 93.0 kg
[~2017-06-23 11:04] MED LIST changes: -EXCETAB PO; -HYDR-3516 PO; -METR500T10 PO; -NEOM500 PO; -PROM12.54 PO
[2017-06-23] MEDS ORDERED: METR500T10 PO (11:45)
[2017-06-23] MEDS ORDERED: PROM12.54 PO (11:45)
[2017-06-23] MEDS ORDERED: NEOM500 PO (11:46)
[2017-06-23] MEDS ORDERED: PROPOFOL 200 MG/20 ML AMP IV ONE (12:00)
[2017-06-23] MEDS ORDERED: ROCURONIUM INJ 50 MG/5 ML SYRINGE IV PUSH ONE (12:00)
[2017-06-23] MEDS ORDERED: ePHEDrine/NS 25 MG/5 ML SYR IV ONE (12:00)
[2017-06-23] MEDS ORDERED: ceFAZolin INJ 1,000 MG VIAL IV ONE (12:00)
[2017-06-23] MEDS ORDERED: NEOSTIGMINE 3 MG/3 ML SYR IV ONE (12:00)
[2017-06-23] MEDS ORDERED: GLYCOPYRROLATE 1 MG/5 ML SYRINGE IV PUSH ONE (12:00)
[2017-06-23] MEDS ORDERED: SODIUM CHLORID 0.9% 500 ML IV PRN (12:00)
[2017-06-23] MEDS ORDERED: ONDANSETRON HCL 4 MG/2 ML VIAL IV PUSH ONE (12:00)
[2017-06-23] MEDS ORDERED: ceFAZolin 2 GM PREMIX 50 ML IV SCH (12:00)
[2017-06-23] MEDS ORDERED: METOPROLOL TARTRATE 25 MG TAB PO PRN (12:00)
[2017-06-23] MEDS ORDERED: POVIDONE IODINE 5% (ANTISEPSIS KIT) 4 APPLICATIONS EACH NARE PRN (12:00)
[2017-06-23] MEDS ORDERED: LIDOCAINE HCL 1% PF 5 ML AMPULE OTHER ONE (12:00)
[2017-06-23] MEDS ORDERED: LACTATED RINGER'S 1000 ML IV PRN (12:00)
[2017-06-23] MEDS: DEXT 5%-NACL 0.9% 1000 ML INJ 1,000 ML IV SCH ×2 (12:00→20:00)
[2017-06-23] MEDS ORDERED: METRONIDAZOLE 500 MG/100 ML ISONTONIC SOLN IV SCH (12:00)
[2017-06-23] MEDS ORDERED: INSULIN HUMAN REGULAR 1,000 UNITS/10 ML VIAL SQ PRN (12:00)
[2017-06-23] MEDS ORDERED: DEXAMETHASONE SOD PHOS 4 MG/ML VIAL IV ONE (12:00)
[2017-06-23] MEDS ORDERED: CHLORHEXIDINE GLUCONATE 2 % 1 PACK (2 CLOTHS) TOPICAL PRN (12:00)
[2017-06-23] MEDS ORDERED: ACETAMINOPHEN 1000 MG/100 ML 100 ML IV ONE (13:16)
[2017-06-23] MEDS ORDERED: FAMOTIDINE 20 MG/2 ML VIAL ONE (13:40)
[2017-06-23] MEDS ORDERED: MIDAZOLAM HCL 2 MG/2 ML VIAL ONE (13:40)
[2017-06-23] MEDS: D5-NS + KCL 20 MEQ INJ 1,000 ML IV SCH ×2 (15:15→21:57)
[2017-06-23] MEDS ORDERED: ENALAPRILAT 2.5 MG/2 ML VIAL IV PRN (15:15)
[2017-06-23] MEDS ORDERED: NALOXONE HCL 0.4 MG/ML AMP IV PRN (15:15)
[2017-06-23] MEDS ORDERED: MORPHINE SULFATE 30 MG/30 ML PCA IV SCH (15:15)
[2017-06-23] MEDS ORDERED: POTASSIUM CHLOR 20 MEQ PREMIX 100 ML IV PRN (15:15)
[2017-06-23] MEDS ORDERED: Post-op Orders (for Pharmacy) MISC XX ONE (15:15)
[2017-06-23] MEDS ORDERED: ACETAMINOPHEN 325 MG TAB PO PRN (15:15)
[2017-06-23] MEDS ORDERED: ACETAMINOPHEN/HYDROcodone 325 MG/5 MG TAB PO PRN ×2 (15:15)
[2017-06-23] MEDS ORDERED: diphenhydrAMINE HCL 50 MG/ML VIAL IV PRN (15:15)
[2017-06-23] MEDS ORDERED: POTASSIUM CHLOR 40 MEQ PREMIX 100 ML IV PRN (15:15)
[2017-06-23] MEDS: KETOROLAC TROMETHAMINE 30 MG/ML (IVP) VIAL IVP SCH ×2 (15:15→21:56)
[2017-06-23] MEDS ORDERED: BENZOCAINE 6 MG/MENTHOL 10 MG LOZENGE BUCCAL PRN (15:15)
[2017-06-23] MEDS ORDERED: ONDANSETRON HCL 4 MG/2 ML VIAL IV PRN (15:15)
[2017-06-23] MEDS ORDERED: ENALAPRILAT 1.25 MG/ML VIAL IV PRN (15:15)
[2017-06-23] MEDS ORDERED: SODIUM CHLORIDE 0.9% FLUSH 5 ML FLUSH IVF PRN (15:15)
[2017-06-23] MEDS ORDERED: *morphine SULFATE 8 MG/ML PERIprocedure ONLY ONE ×2 (15:22→15:49)
--- NOTE | 2017-06-23 15:33 | EKG ---
Date Performed: 06/23/2017 Time Performed: 11:38:08 PTAGE: 61 years EKG: Sinus rhythm POSSIBLE LEFT ATRIAL ENLARGEMENT INCOMPLETE RIGHT BUNDLE BRANCH BLOCK MINIMAL ST DEPRESSION BORDERLI NE ECG Anterolateral ST depression is new since prior tracing. Clinical correlation recommended. PREVIOUS TRACING : 08/01/2011 08.15 DOCTOR: Arnulfo Blunt Interpretating Date/Time 06/23/2017 15:32:48
--- NOTE | 2017-06-23 16:04 | MP ---
cc: ANA ARECHIGA M.D., DAVID DR. KRAMER, DATE OF SURGERY: 06/23/2017 PREOPERATIVE DIAGNOSES 1. Diverticulitis 2. Colovesical fistula. POSTOPERATIVE DIAGNOSES 1. Diverticulitis 2. Colovesical fistula. PROCEDURE Resection with reanastomosis of ileostomy. SURGEON Ana Arechiga MD ASSESSMENT NURSE Kevyn ANESTHESIA General per ET tube ESTIMATED BLOOD LOSS Less than 50 mL OPERATIVE INDICATIONS The patient is a 61-year-old female who is approximately 3 months out from a diverticular resection with diversion. OPERATIVE FINDINGS Ileostomy. OPERATIVE COURSE The patient was brought to the operating room and placed in the supine position. After induction of general anesthesia, the ileostomy was closed in a running fashion using 3-0 Vicryl. The skin of the anterior abdominal wall was then prepped and draped in the usual sterile fashion. A lenticular incision was then made around the stoma, oriented in a transverse direction. Using electrocautery, dissection was carried down to the fascia of the anterior abdominal wall. The bowel was gently dissected free from the fascia circumferentially. There was one small area where it was quite stuck at the upper right corner. Eventually we had full mobility of the small bowel up and out through the stomal aperture. Then a site was chosen for proximal and distal division of the bowel. This was just past the ileostomy. The mesentery was opened and a CARLI stapler was placed across the bowel at this level. This was closed and fired. A site was chosen proximally, just proximal to the area where it had been stuck to the fascia, necessitating excision of about 15-20 cm of bowel. The mesentery at this level was opened and a reload of the CARLI stapler was placed across the bowel at this level. The intervening mesentery was serially divided and ligated using 0 Vicryl ties. The antimesenteric corners of the staple line were then removed. One limb of the gastrointestinal stapler was placed down each limb of the bowel. This was closed along the antimesenteric border, fired, and removed, thus creating an an entero enterotomy. The resulting enterotomy was closed transversely using the TX 60 stapling device. A simple stay suture was placed at the distal end of the anastomosis using 3-0 Vicryl, and the mesenteric defect was closed in a running fashion using 30 Vicryl as well. The bowel was then returned to the peritoneal cavity and the anastomosis was palpated and found to be widely patent. The posterior fascia was closed in a running fashion using #1 PDS and the anterior fascia was closed in a running fashion using #1 PDS. A small area of peritoneum from what appeared to be a slight herniation was then dissected free and discarded. The wound was copiously irrigated with warm normal saline. The subcutaneous tissue was reapproximated in an interrupted fashion using 3-0 Vicryl. The skin was closed in a running fashion using, 3-0 Vicryl. Sterile dressing was applied. All sponge, needle and instrument counts were correct and the patient was returned to the post anesthesia care in stable condition. MD BOBY Aguirre/ROSEMARIE /3:16 PM /9:23 AM EMELIA
[2017-06-23 16:07] LABS: AUTOMATED NEUTROPHIL # 6.9 TH/MM3 (1.8-7.7); BASOPHIL # 0.1 TH/MM3 (0-0.2); BASOPHIL % 0.8 % (0.0-2.0); EOSINOPHIL # 0.1 TH/MM3 (0-0.4); EOSINOPHIL % 1.3 % (0.0-4.0); HEMATOCRIT 41.8 % (35.0-46.0); HEMO FLAGS DIFF FINAL; LYMPH % 18.8 % (9.0-44.0); LYMPHOCYTE # 1.8 TH/MM3 (1.0-4.8); MEAN CELL VOLUME 88.8 FL (80.0-100.0); MEAN CORPUSCULAR HEMOGLOBIN 28.8 PG (27.0-34.0); MEAN CORPUSCULAR HGB CONC 32.5 % (32.0-36.0); MONO % 6.4 % (0.0-8.0); NEUT % 72.7 % (16.0-70.0); PLATELET COUNT 218 TH/MM3 (150-450); RED BLOOD COUNT 4.71 MIL/MM3 (4.00-5.30); RED CELL DISTRIBUTION WIDTH 15.7 % (11.6-17.2); WHITE BLOOD COUNT 9.5 TH/MM3 (4.0-11.0)
[2017-06-23 16:23] LABS: BICARBONATE 23.7 MEQ/L (21.0-32.0); POTASSIUM 4.9 MEQ/L (3.5-5.1)
[2017-06-23 17:00] VITALS: BP 121/65; PULSE 85; RESP 17; TEMP 97.4; O2SAT 100
[2017-06-23 19:00] VITALS: BP 118/68; PULSE 83; PULSE 88; RESP 18; TEMP 98; O2SAT 96
[2017-06-23] MEDS ORDERED: ceFAZolin INJ 1,000 MG VIAL ONE (19:48)
[2017-06-23 20:00] VITALS: PULSE 90
[2017-06-23 21:00] VITALS: PULSE 84
[2017-06-23] MEDS: SODIUM CHLORIDE 0.9% FLUSH 5 ML FLUSH IVF SCH (21:00)
[2017-06-23] MEDS ORDERED: NON-FORMULARY DRUG (Lisinopril-Hctz 1 TAB) PO SCH (21:00)
[2017-06-23] MEDS ORDERED: metroNIDAZOLE 500 MG INJ 100 ML IV ONE (21:40)
[2017-06-23] MEDS ORDERED: D5-NS + KCL 20 MEQ INJ 1,000 ML ONE (21:40)
[2017-06-23] MEDS ORDERED: KETOROLAC TROMETHAMINE 30 MG/ML (IVP) VIAL ONE (21:40)
[2017-06-23] MEDS: metroNIDAZOLE 500 MG INJ 100 ML IV SCH (21:57)
[2017-06-23 22:00] VITALS: PULSE 80
[2017-06-23] MEDS: PCA - TOTAL MG MORPHINE DELIVERED PER SHIFT SCH (22:00)
[2017-06-23 23:00] VITALS: BP 100/55; PULSE 75; PULSE 80; RESP 16; TEMP 97.6; O2SAT 95
[2017-06-24] VITALS (19 sets, daily range): BP systolic 103–130; BP diastolic 59–72; PULSE 62–87; RESP 16–19; TEMP 97.5–98.2; O2SAT 95–100
[2017-06-24] MEDS: KETOROLAC TROMETHAMINE 30 MG/ML (IVP) VIAL IVP SCH ×4 (02:07→21:15)
[2017-06-24] MEDS ORDERED: KETOROLAC TROMETHAMINE 30 MG/ML (IVP) VIAL ONE (02:09)
[2017-06-24] MEDS ORDERED: D5-NS + KCL 20 MEQ INJ 1,000 ML ONE (03:51)
[2017-06-24] MEDS: DEXT 5%-NACL 0.9% 1000 ML INJ 1,000 ML IV SCH ×3 (04:00→20:00)
[2017-06-24] MEDS: D5-NS + KCL 20 MEQ INJ 1,000 ML IV SCH ×3 (04:28→21:16)
[2017-06-24] MEDS: metroNIDAZOLE 500 MG INJ 100 ML IV SCH ×2 (06:00→14:43)
[2017-06-24] MEDS: PCA - TOTAL MG MORPHINE DELIVERED PER SHIFT SCH (06:00)
[2017-06-24 06:08] LABS: AUTOMATED NEUTROPHIL # 7.4 TH/MM3 (1.8-7.7); BASOPHIL % 0.4 % (0.0-2.0); HEMATOCRIT 37.2 % (35.0-46.0); HEMO FLAGS DIFF FINAL; LYMPH % 12.6 % (9.0-44.0); LYMPHOCYTE # 1.2 TH/MM3 (1.0-4.8); MEAN CELL VOLUME 88.7 FL (80.0-100.0); MEAN CORPUSCULAR HEMOGLOBIN 29.3 PG (27.0-34.0); MONO % 7.1 % (0.0-8.0); NEUT % 79.9 % (16.0-70.0); PLATELET COUNT 200 TH/MM3 (150-450); RED BLOOD COUNT 4.19 MIL/MM3 (4.00-5.30); RED CELL DISTRIBUTION WIDTH 15.4 % (11.6-17.2); WHITE BLOOD COUNT 9.2 TH/MM3 (4.0-11.0)
[2017-06-24 06:27] LABS: BICARBONATE 21.7 MEQ/L (21.0-32.0); POTASSIUM 4.3 MEQ/L (3.5-5.1)
[2017-06-24] MEDS ORDERED: metroNIDAZOLE 500 MG INJ 100 ML IV ONE (06:27)
[2017-06-24] MEDS: PANTOPRAZOLE SODIUM 40 MG VIAL IVP SCH (08:41)
[2017-06-24] MEDS: LISINOPRIL 20 MG TAB PO SCH (08:41)
[2017-06-24] MEDS: HYDROCHLOROTHIAZIDE 12.5 MG CAP PO SCH (08:42)
[2017-06-24] MEDS: SODIUM CHLORIDE 0.9% FLUSH 5 ML FLUSH IVF SCH ×2 (08:42→21:00)
--- NOTE | 2017-06-24 13:38 | HHI.PR ---
Subjective Remarks POD#1 s/p ileostomy resection/reanastomosis Comfortable Objective Vital Signs Date Time Temp Pulse Resp B/P (MAP) Pulse Ox O2 Delivery O2 Flow Rate FiO2 06/24/17 13:00 87 06/24/17 12:00 71 06/24/17 11:19 20 06/24/17 11:00 97.5 71 19 126/64 (84) 100 06/24/17 11:00 70 06/24/17 10:02 71 06/24/17 09:00 72 06/24/17 08:42 19 06/24/17 08:00 70 06/24/17 07:15 66 06/24/17 07:15 97.6 67 19 115/67 (83) 96 06/24/17 06:02 71 06/24/17 06:00 16 06/24/17 05:05 72 06/24/17 04:00 70 06/24/17 03:00 97.9 69 16 104/63 (77) 96 06/24/17 03:00 74 06/24/17 02:00 74 06/24/17 01:00 74 06/24/17 00:00 76 06/23/17 23:00 97.6 75 16 100/55 (70) 95 06/23/17 23:00 80 06/23/17 22:00 80 06/23/17 22:00 16 06/23/17 21:00 84 06/23/17 20:00 90 06/23/17 19:00 98.0 83 18 118/68 (85) 96 06/23/17 19:00 88 06/23/17 17:00 85 06/23/17 17:00 97.4 85 17 121/65 (83) 100 06/23/17 16:30 82 21 113/62 (79) 94 Nasal Cannula 2 06/23/17 16:15 81 14 111/60 (77) 95 Nasal Cannula 2 06/23/17 16:00 81 17 116/65 (82) 96 Nasal Cannula 2 06/23/17 15:57 16 06/23/17 15:45 80 14 120/58 (78) 98 Nasal Cannula 2 06/23/17 15:30 76 17 108/56 (73) 98 Nasal Cannula 2 06/23/17 15:15 97.9 81 20 122/58 (79) 96 Nasal Cannula 4 I/O 06/23/17 06/23/17 06/23/17 06/24/17 06/24/17 06/24/17 07:00 15:00 23:00 07:00 15:00 23:00 Intake Total 1000 ml 202 ml 2930 ml 1000 ml Output Total 1050 ml 300 ml Balance -50 ml 202 ml 2630 ml 1000 ml Intake Oral 720 ml IV Total 1000 ml 202 ml 2210 ml 1000 ml Output Urine Total 300 ml Estimated Blood Loss 50 ml Other 1000 ml # Voids 4 Result Diagram: 06/24/1751606/24/17516 Objective Remarks Abdomen soft,nondistended, tender Dressing c/d/i Assessment and Plan Assessment and Plan Doing well Transfer Advance diet Elena Arechiga MD Jun 24, 2017 13:38
[2017-06-24] MEDS: HEPARIN SODIUM - SQ 10,000 UNITS/ML VIAL SQ SCH (15:44)
[2017-06-25] MEDS: HEPARIN SODIUM - SQ 10,000 UNITS/ML VIAL SQ SCH (03:27)
[2017-06-25] MEDS: KETOROLAC TROMETHAMINE 30 MG/ML (IVP) VIAL IVP SCH ×2 (03:28→09:06)
[2017-06-25 03:49] VITALS: BP 124/70; PULSE 63; RESP 16; TEMP 97.3; O2SAT 97
[2017-06-25] MEDS: DEXT 5%-NACL 0.9% 1000 ML INJ 1,000 ML IV SCH ×2 (04:00→10:21)
[2017-06-25 06:32] LABS: BICARBONATE 19.7 MEQ/L (21.0-32.0)
[2017-06-25 06:34] LABS: AUTOMATED NEUTROPHIL # 5.3 TH/MM3 (1.8-7.7); BASOPHIL # 0.1 TH/MM3 (0-0.2); BASOPHIL % 1.1 % (0.0-2.0); EOSINOPHIL # 0.3 TH/MM3 (0-0.4); EOSINOPHIL % 3.3 % (0.0-4.0); HEMATOCRIT 37.8 % (35.0-46.0); HEMO FLAGS DIFF FINAL; LYMPH % 22.4 % (9.0-44.0); LYMPHOCYTE # 1.8 TH/MM3 (1.0-4.8); MEAN CELL VOLUME 90.9 FL (80.0-100.0); MEAN CORPUSCULAR HEMOGLOBIN 29.1 PG (27.0-34.0); MONO % 7.6 % (0.0-8.0); NEUT % 65.6 % (16.0-70.0); PLATELET COUNT 186 TH/MM3 (150-450); RED BLOOD COUNT 4.16 MIL/MM3 (4.00-5.30); RED CELL DISTRIBUTION WIDTH 16.1 % (11.6-17.2)
[2017-06-25 08:00] VITALS: BP 119/72; PULSE 60; RESP 18; TEMP 97.1; O2SAT 100
[2017-06-25] MEDS: SODIUM CHLORIDE 0.9% FLUSH 5 ML FLUSH IVF SCH (09:00)
[2017-06-25] MEDS: PANTOPRAZOLE SODIUM 40 MG VIAL IVP SCH (09:04)
[2017-06-25] MEDS: LISINOPRIL 20 MG TAB PO SCH (09:05)
[2017-06-25] MEDS: HYDROCHLOROTHIAZIDE 12.5 MG CAP PO SCH (09:05)
[2017-06-25 11:29] VITALS: BP 130/74; PULSE 63; RESP 16; TEMP 97.4; O2SAT 100
[2017-06-25] MEDS ORDERED: HYDR-3516 PO (13:01)
== END 2017-06-25 13:42 | disposition home or self-care (01) | DRG 330 ==
LOC: HSDI 11:04 → HCPC 16:46
PROVIDERS: ADMIT Colon & Rectal Surgery; ATTEND Colon & Rectal Surgery
PROC: 0DQV0ZZ Repair Mesentery, Open Approach (ICD-10-PCS; 2017-06-23)
PROC: 0D1B0Z4 Bypass Ileum to Cutaneous, Open Approach (ICD-10-PCS; principal; 2017-06-23 13:41)
DX: Z43.2 Encounter for attention to ileostomy (principal); K57.92 Diverticulitis of intestine, part unspecified, without perforation or abscess without bleeding; N32.1 Vesicointestinal fistula
CPT/HCPCS: 80048; 85025; 86850; 86900; 86901; 88304; 88307; 93005; 94150; C9113; J0131; J0690; J1100; J1644; J1885; J2250; J2270; J2405; J2710; J3010; J3480; J7120